=== PATIENT | male | born 1970 ===

== ENCOUNTER 2016-06-23 08:30 | Day surgery (SDC) | payer OTHER ==
[2016-06-23] MEDS ORDERED: NACL 0.9% 1000 ML 1,000 ML IV SCH (10:00)
[2016-06-23] MEDS ORDERED: VANCOMYCIN/NS 1 GM/250 ML 1 GM/250 ML BAG IV NR (10:00)
--- NOTE | 2016-06-23 10:13 | Anesthesia Consultation ---
Anesthesia Consult and Med Hx Date of service: 06/23/16 - Airway Anesthetic Teeth Evaluation: Good, Chipped (top molar) ROM Head & Neck: Adequate Mental/Hyoid Distance: Adequate Mallampati Class: Class II Intubation Access Assessment: Probably Good - Pulmonary Exam CTA: Yes - Cardiac Exam Cardiac Exam: RRR - Pre-Operative Health Status ASA Pre-Surgery Classification: ASA2 Proposed Anesthetic Plan: General - Pulmonary Hx Smoking: No Hx Sleep Apnea: No - Cardiovascular System Hx Hypertension: No - Endocrine Hx Non-Insulin Dependent Diabetes: Yes - Other Systems Hx Cancer: No
--- NOTE | 2016-06-23 10:14 | Anesthesia Day of Surgery ---
Anesthesia Day of Surgery - Day of Surgery Patient Examined: Yes Patient H&P Reviewed: Yes Patient is NPO: Yes
[2016-06-23] MEDS ORDERED: NORCO 5/325 PO PRN (10:19)
[2016-06-23] MEDS ORDERED: ZOFRAN IV PRN (10:19)
[2016-06-23] MEDS ORDERED: DILAUDID IV PRN (10:19)
[2016-06-23] MEDS ORDERED: DILAUDID ONE (10:35)
[2016-06-23] MEDS ORDERED: DIPRIVAN 10 MG/ML IV ONE (10:36)
[2016-06-23] MEDS ORDERED: XYLOCAINE MPF 2% ONE (10:37)
[2016-06-23] MEDS ORDERED: NACL P/F VIAL (10 ML) ONE (11:00)
[2016-06-23] MEDS ORDERED: VERSED IV NR (11:00)
[2016-06-23] MEDS ORDERED: PEPCID PO NR (11:00)
[2016-06-23] MEDS ORDERED: ANCEF ONE (11:00)
[2016-06-23] MEDS ORDERED: DECADRON ONE (11:28)
[2016-06-23] MEDS ORDERED: ZOFRAN ONE (11:28)
[2016-06-23] MEDS ORDERED: BACITRACIN IR ONE (11:39)
[2016-06-23] MEDS ORDERED: GARAMYCIN IV ONE (11:39)
[2016-06-23] MEDS ORDERED: NACL 0.9% IR ONE ×2 (11:39)
[2016-06-23] MEDS ORDERED: ROBINUL ONE (12:10)
[2016-06-23] MEDS ORDERED: NEO SYNEPHRINE ONE (12:11)
--- NOTE | 2016-06-23 12:46 | Post Operative Note ---
Pre-op diagnosis: right diabetic foot wound Post-op diagnosis: same Findings: multiple wounds of the right foot Procedure: debridement right foot wounds, placement of integra and wound vac Anesthesia: BETTY Surgeon: MYRA LOVE Estimated blood loss: minimal Pathology: none Condition: stable Disposition: PACU
[2016-06-23] MEDS ORDERED: DIFLUCAN PO SCH (14:00)
[2016-06-23] MEDS ORDERED: FLUSH HEPARIN IV ONE ×2 (14:10→14:29)
[2016-06-23 16:27] VITALS: BP 111/72
--- NOTE | 2016-06-23 17:44 | Operative Report ---
PREOPERATIVE DIAGNOSIS: Multiple diabetic foot wounds of the right foot. POSTOPERATIVE DIAGNOSIS: Multiple diabetic foot wounds of the right foot. PROCEDURES: 1. Excisional debridement of right foot wound down to bone. Total area of 36 square cm, CPT code 78546, 12996. 2. Debridement of right diabetic foot wound. Excisional debridement of right diabetic foot wound including skin and subcutaneous tissue. Total area is 50 square cm, CPT code 81500, 21165 x 2. 3. Application of skin substitute graft, Integra to the multiple right diabetic foot wounds, total size 44 square cm, CPT code 92269, 01403. 4. Application of negative pressure wound therapy device, less than 50 square cm, CPT code 96844. SURGEON: Stepan Albrecht M.D. TRIMMER SORTER: None. ANESTHESIA: General. OPERATIVE INDICATIONS: This is a 46-year-old male, who is well known to me, with a history of diabetic foot wound. He has undergone multiple debridements of multiple wounds on his foot and despite recommendations for amputation, the patient would like to proceed with limb salvage. I recently saw him in the office several weeks ago and even though the plantar wound is continuing to heal., the dorsal wound continues to have exposed bone and tendon. He had failed one attempted Integra placement in the past, but now was nutritionally optimized. His blood sugars were under better control and he has been undergoing hyperbaric treatment. For that reason, we elected to try another attempted Integra to try to cover the exposed tendon and bones on the dorsum of the foot. Risks and benefits of surgery were discussed with the patient and he agreed. OPERATIVE DETAILS: After informed consent was obtained, the patient was brought to the operative room, placed supine on operating room table. Preoperative antibiotics and general anesthesia were administered. The patient was prepped and draped in usual sterile fashion. A timeout was called verifying the patient, operation being performed, site and side of the operation. First began by measuring the wound. He had a large dorsal wound over the tendon and bone of the midfoot that measured 6 x 6 cm in size. He had a secondary wound that was slightly more distal and medial that was 4 x 2 cm in size with thick eschar. Certainly, it will get mushy and had a little purulent drainage coming out. He then also had a wound on the plantar aspect of the foot that has been granulating well. It is oddly-shaped wound and is approximately 6.5 x 6.5 cm in size. All the wounds were evaluated and we then began with debridement. The larger dorsal wound, I performed a full thickness excisional debridement using a scalpel, scissors as well as a curette and rongeur to debride the skin, subcutaneous tissue, muscle, fascia, tendon and bone. This was done extensively to clear all the fibrinous and nonviable tissue from the wound. I then performed a full thickness excisional debridement of skin and subcutaneous tissue of the smaller medial wound which measured 4 x 2 cm in size. All the necrotic debris was removed. There was no exposed tendon or bone at the base of that wound. I then also performed a full thickness excisional debridement of the skin and subcutaneous tissue of plantar wound and also used a curette to clean up the entire wound base to stimulate more healing granulation tissue. This was done with a scalpel and scissors. I then thoroughly irrigated all the wounds with 2 liters of Triple antibiotic irrigation and achieved hemostasis. At this point, we elected to proceed with placement of an Integra. I used an Integra 4 x 5 inch piece and cut that to the appropriate size and placed it over the two dorsal wounds and stapled that circumferentially. The Integra was a meshed bilayer to allow for fluid egress. The total size of the wounds covered was 8 cm wound and a 36 square cm wound for a total of 44 square cm of Integra coverage. Once that was in place, we then placed some Adaptic over the top of the Integra and I then placed an extensive wound VAC to bridge the 2 wounds and bring it out to the lateral ankle and placed the suction device out there. I took care to protect all of the skin with a layer of Tegaderm and then some multiple putty around the skin edges. A wound VAC was applied. Negative pressure was achieved and there was no leak with good suction. We used a wound VAC as a bolster for the Integra. The plantar wound, I elected to leave that without a wound VAC for now and displaced some Adaptic and a bulky gauze dressing and wrapped it with Kerlix and an Joaquín bandage. The plan will be [facility] and have everything removed and have a new combination bag placed to bridge all of the wounds together and continue with wound VAC therapy and hyperbaric. He tolerated the procedure well. He is awakened from general anesthesia and transferred to PACU in stable condition. ESTIMATED BLOOD LOSS: Less than 10 mL. COMPLICATIONS: None. SPECIMENS: None. FINDINGS: Multiple diabetic foot wounds with exposed bone and tendon. JOB# [id number] MARY/AIDAN BOURGEOIS
[2016-06-24] MEDS ORDERED: CUBICIN 500 MG in NACL 0.9% 100 ML IV SCH (10:00)
[2016-06-24] MEDS ORDERED: CUBICIN IV SCH (10:00)
== END 2016-06-23 15:10 | disposition home or self-care (01) ==
LOC: OR 08:30
PROVIDERS: ATTEND Plastic Surgery
DX: E11.621 Type 2 diabetes mellitus with foot ulcer (principal); I10 Essential (primary) hypertension
CPT/HCPCS: 11044; 11047; 15275; 15276; 82962; A4217; A5122; C1781; J0690; J1100; J1170; J1580; J1642; J2250; J2405; J2704; J3370; J7030; J2370